=== PATIENT | male | born 1960 | race Caucasian/White ===

== ENCOUNTER 2016-10-16 21:41 | Emergency (ER) | payer BC ==
[~2016-10-16] VITALS: Ht 180.3 cm; Wt 80.7 kg
[~2016-10-16 21:41] MED LIST: AZIT250T PO; PRED50TA PO; VENTOLIN HFA18 GM INH
[2016-10-16 22:20] LABS: BILIRUBIN,URINE NEGATIVE (NEG); GLUCOSE,URINE NEGATIVE (NEG); NITRITE,URINE NEGATIVE (NEG); PROTEIN,URINE NEGATIVE (NEG-TRACE)
[2016-10-16 22:29] LABS: BACTERIA,URINE 0 /HPF (0-FEW); RBC,URINE OCC /HPF (0-2); SQUAMOUS EPITHELIAL CELL,UR OCC /LPF; WBC,URINE OCC /HPF (0-4)
[2016-10-16] MEDS ORDERED: ONDANSETRON PF 4 MG/2 ML VIAL. IV ONE (22:30)
[2016-10-16] MEDS ORDERED: CONTRAST GIVEN MC PRN (22:30)
[2016-10-16] MEDS ORDERED: IOHEXOL 300 MG/ML 75 ML VIAL IV ONE (22:30)
[2016-10-16] MEDS ORDERED: FENTANYL PF 100 MCG/2 ML VIAL. IV ONE (22:30)
[2016-10-16 22:39] LABS: BASO # 0.1 x10^3/uL (0.0-0.2); BASO % 1 % (0-3); EOS % 3 % (0-3); HEMATOCRIT 44.4 % (39.0-53.0); LYMPH # 2.9 x10^3/uL (1.0-4.8); LYMPH % 31 % (24-48); MEAN CORPUSCULAR HEMOGLOBIN 31 pg (25-35); MEAN CORPUSCULAR HGB CONC 34 g/dL (31-37); MEAN CORPUSCULAR VOLUME 91 fL (79-100); MONO % 9 % (0-9); NEUT % 57 % (31-73); PLATELET COUNT 279 x10^3/uL (140-400); RED BLOOD COUNT 4.87 x10^6/uL (4.30-5.70); RED CELL DISTRIBUTION WIDTH 13.4 % (11.5-14.5); WHITE BLOOD COUNT 9.6 x10^3/uL (4.0-11.0)
[2016-10-16 22:47] LABS: CALCIUM 8.6 mg/dL (8.5-10.1); CREATININE 1.1 mg/dL (0.7-1.3); GFR 68.8; POTASSIUM 3.6 mmol/L (3.5-5.1)
--- NOTE | 2016-10-16 23:09 | PHYS DOC ---
Past Medical History Past Medical History: Other Additional Past Medical Histor: hernia, left knee injury, acute bronchitis Past Surgical History: Other Additional Past Surgical Histo: hernia repair Alcohol Use: None Drug Use: None Adult General Chief Complaint Chief Complaint: ABDOMINAL PAIN HPI HPI This 56-year-old male had a left inguinal hernia repair back in May with mesh. He states this happened over at [facility]. He states since that time is had multiple episodes of pain but has had no follow- up operations. He states for the last 3 days he has had significant pain again to his left inguinal area. He denies any significant swelling or redness. He denies any nausea or vomiting. He states he had a normal bowel movement this morning. He states his pain is made worse with movement and straining and is rated a 6/10. He denies any significant past medical history. Review of Systems Review of Systems Constitutional: Denies fever or chills [] Eyes: Denies change in visual acuity, redness, or eye pain [] HENT: Denies nasal congestion or sore throat [] Respiratory: Denies cough or shortness of breath [] Cardiovascular: No additional information not addressed in HPI [] GI: Has abdominal pain, denies nausea, denies vomiting, denies bloody stools or diarrhea [] : Denies dysuria or hematuria [] Musculoskeletal: Denies back pain or joint pain [] Integument: Denies rash or skin lesions [] Neurologic: Denies headache, focal weakness or sensory changes [] Endocrine: Denies polyuria or polydipsia [] Current Medications Current Medications Current Medications Medications (Trade) Dose Ordered Sig/[facility] Start Time Stop Time Status Last Admin Dose Admin Fentanyl Citrate (Fentanyl 2ml Vial) 50 mcg 1X ONCE 10/16/16 22:30 10/16/16 22:31 DC 10/16/16 22:27 50 MCG Info (Do NOT chart on this entry -- for MONITORING) 1 each PRN DAILY PRN 10/16/16 22:30 10/18/16 22:29 Iohexol (Omnipaque 300 Mg/ml) 75 ml 1X ONCE 10/16/16 22:30 10/16/16 22:31 DC 10/16/16 23:11 75 ML Ondansetron HCl (Zofran) 4 mg 1X ONCE 10/16/16 22:30 10/16/16 22:31 DC 10/16/16 22:27 4 MG Allergies Allergies Allergies Coded Allergies Type Severity Reaction Last Updated Verified No Known Drug Allergies 01/19/16 No Physical Exam Physical Exam Constitutional: Well developed, well nourished, no acute distress, non-toxic appearance. [] HENT: Normocephalic, atraumatic, bilateral external ears normal, oropharynx moist, no oral exudates, nose normal. [] Eyes: PERRLA, EOMI, conjunctiva normal, no discharge. [] Neck: Normal range of motion, no tenderness, supple, no stridor. [] Cardiovascular:Heart rate regular rhythm, no murmur [] Lungs & Thorax: Bilateral breath sounds clear to auscultation [] Abdomen: Bowel sounds normal, soft, moderate inguinal tenderness to palpation with no obvious swelling or erythema, there is no evidence of incarceration, no masses, no pulsatile masses, there are no peritoneal signs. [] Skin: Warm, dry, no erythema, no rash. [] Back: No tenderness, no CVA tenderness. [] Extremities: No tenderness, no cyanosis, no clubbing, ROM intact, no edema. [] Neurologic: Alert and oriented X 3, normal motor function, normal sensory function, no focal deficits noted. [] Psychologic: Affect normal, judgement normal, mood normal. [] Current Patient Data Vital Signs Vital Signs Date Time Temp Pulse Resp B/P Pulse Ox O2 Delivery O2 Flow Rate FiO2 10/16/16 22:27 18 97 Room Air 10/16/16 21:42 97.8 88 151/86 97.8 Lab Values Laboratory Tests Test 10/16/16 21:45 10/16/16 22:25 Urine Collection Type Unknown Urine Color Yellow Urine Clarity Cloudy Urine pH 7.0 Urine Specific [place] 1.025 Urine Protein Negativemg/dL (NEG-TRACE) Urine Glucose (UA) Negativemg/dL (NEG) Urine Ketones (Stick) Negativemg/dL (NEG) Urine Blood Negative (NEG) Urine Nitrite Negative (NEG) Urine Bilirubin Negative (NEG) Urine Urobilinogen Dipstick 1.0mg/dL (0.2 mg/dL) Urine Leukocyte Esterase Negative (NEG) Urine RBC Occ/HPF (0-2) Urine WBC Occ/HPF (0-4) Urine Squamous Epithelial Cells Occ/LPF Urine Bacteria 0/HPF (0-FEW) Urine Mucus Mod/LPF White Blood Count 9.6x10^3/uL (4.0-11.0) Red Blood Count 4.87x10^6/uL (4.30-5.70) Hemoglobin 15.0g/dL (13.0-17.5) Hematocrit 44.4% (39.0-53.0) Mean Corpuscular Volume 91fL (79-100) Mean Corpuscular Hemoglobin 31pg (25-35) Mean Corpuscular Hemoglobin Concent 34g/dL (31-37) Red Cell Distribution Width 13.4% (11.5-14.5) Platelet Count 279x10^3/uL (140-400) Neutrophils (%) (Auto) 57% (31-73) Lymphocytes (%) (Auto) 31% (24-48) Monocytes (%) (Auto) 9% (0-9) Eosinophils (%) (Auto) 3% (0-3) Basophils (%) (Auto) 1% (0-3) Neutrophils # (Auto) 5.5x10^3uL (1.8-7.7) Lymphocytes # (Auto) 2.9x10^3/uL (1.0-4.8) Monocytes # (Auto) 0.8x10^3/uL (0.0-1.1) Eosinophils # (Auto) 0.3x10^3/uL (0.0-0.7) Basophils # (Auto) 0.1x10^3/uL (0.0-0.2) Sodium Level 145mmol/L (136-145) Potassium Level 3.6mmol/L (3.5-5.1) Chloride Level 108mmol/L (98-107) H Carbon Dioxide Level 29mmol/L (21-32) Anion Gap 8 (6-14) Blood Urea Nitrogen 18mg/dL (8-26) Creatinine 1.1mg/dL (0.7-1.3) Estimated GFR (Cockcroft-Gault) 68.8 Glucose Level 117mg/dL (70-99) H Calcium Level 8.6mg/dL (8.5-10.1) Laboratory Tests 10/16/16 22:25 Laboratory Tests 10/16/16 22:25 EKG EKG [] Radiology/Procedures Radiology/Procedures CT of the abdomen/pelvis demonstrated the following: The liveer is homogeous in appearance and normal in size. The spleen is unremarkable and normal in size. The pancreas is homogeneous in appearance and no focal enlargement is seen. The gallbladder appears normal and no intra or extrahepatic biliary ductal dilatation is seen. No focal aneurysmal dilatation of the abdominal aorta is seen. No enlarged abdominal or pelvic lymphadenopathy is seen. No soft tissue mass is seen. The colon appears normal. There is moderate wall thickening of multiple loops of small bowel in the left upper quadrant. No free intraperitoneal fluid or abscess or free intraperitoneal air is seen. The lung bases are clear. Both kidneys are functioning and no hydronephrosis or renal mass or perinephric fluid collection is seen. The urinary bladder wall is smooth. No adrenal masses are seen. No osteolytic process is seen. The appendix is normal. Course & Med Decision Making Course & Med Decision Making Pertinent Labs and Imaging studies reviewed. (See chart for details) 56-year-old male with significant left lower inguinal pain. I will obtain IV and lab work as well as a CT of his abdomen and pelvis with IV contrast rule out any sign of infection. At this time his lab work is unremarkable. His pain is been well controlled with IV pain medications. If his CT comes back negative for any acute signs of infection, I will be discharging him home with close follow-up with one of our surgeons as the patient does not want a follow-up at [facility]. His laboratory workup is unremarkable. A CT was and pelvis demonstrated and of a enteritis in his left upper quadrant with some moderate wall thickening. For this I'll be placing him on a course of Cipro and Flagyl and also a course of pain meds. I'll also be given him a follow-up with Dr. Christina the general surgeon for his ongoing hernia pain with strict instructions return of his pain should worsen or he develops any stomach and swelling or redness to the area. He will follow closely in the next 2-3 days for symptom resolution. Dragon Disclaimer Dragon Disclaimer This electronic medical record was generated, in whole or in part, using a voice recognition dictation system. Departure Departure Impression: Primary Impression: Abdominal pain Additional Impression: Enteritis Disposition: 01 HOME, SELF-CARE Admitting Physician: Other Condition: STABLE Referrals: NO PCP (PCP) HOLLIE CHRISTINA MD Patient Instructions: Abdominal Pain (Nonspecific), Hernia, [id number] Additional Instructions: Please take your antibiotic and pain medication as prescribed. Follow up with your primary care doctor as well as the surgeon for your hernia pain in the next 2-3 days. Return to the ER immediately if you develop any worsening of your pain or symptoms. Scripts Metronidazole (Flagyl)500 Mg Tablet1 Tab PO BID #14 TAB Prov:SANDER PERRY DO 10/16/16 Ciprofloxacin Hcl 500 Mg Tablet1 Tab PO BID #14 TAB Prov:SANDER PERRY DO 10/16/16 Hydrocodone/Apap 5-325 ([place] 5-325 Tablet)1 Each Tablet1 Tab PO PRN Q6HRS PRN PAIN #14 TAB Prov:SANDER PERRY DO 10/16/16 Problem Qualifiers SANDER PERRY DO Oct 16, 2016 23:09
--- NOTE | 2016-10-16 23:30 | RAD ---
PROCEDURE Abdominal pain. HISTORY TECHNIQUE After IV infusion of95 cc of Optiray-320, helical CT scanning of the abdomen and pelvis was performed.GI contrast was not administered. FINDINGS The liveer is homogeous in appearance and normal in size. The spleen is unremarkable and normal in size. The pancreas is homogeneous in appearance and no focal enlargement is seen. The gallbladder appears normal and no intra or extrahepatic biliary ductal dilatation is seen. No focal aneurysmal dilatation of the abdominal aorta is seen. No enlarged abdominal or pelvic lymphadenopathy is seen. No soft tissue mass is seen. The colon appears normal. There is moderate wall thickening of multiple loops of small bowel in the left upper quadrant. No free intraperitoneal fluid or abscess or free intraperitoneal air is seen. The lung bases are clear. Both kidneys are functioning and no hydronephrosis or renal mass or perinephric fluid collection is seen. The urinary bladder wall is smooth. No adrenal masses are seen. No osteolytic process is seen. The appendix is normal. IMPRESSION Moderate wall thickening of small bowel in the left upper quadrant is consist with enteritis and could be inflammatory or infectious. Electronically signed by: Fazal Cardona MD (Oct 16, 2016 23:30:03)
[2016-10-16] MEDS ORDERED: METR500T PO (23:37)
[2016-10-16] MEDS ORDERED: CIPR500T PO (23:37)
[2016-10-16] MEDS ORDERED: HYDR-971 PO (23:37)
[2016-10-16 23:58] VITALS: BP 148/89
== END 2016-10-16 23:58 | disposition home or self-care (01) ==
LOC: ER 21:41
DX: K52.9 Noninfective gastroenteritis and colitis, unspecified (principal)
CPT/HCPCS: 36415; 74177; 80048; 81001; 85027; 96374; 96375; 99285; J2405; J3010; Q9967

== ENCOUNTER 2017-08-27 08:24 | Emergency (ER) | payer BC ==
[2017-08-27] MEDS: IPRATRPIUM/ALBUTEROL 0.5/2.5MG 3 ML NEBU. NEB (09:04)
[2017-08-27] MEDS: IV NORMAL SALINE 500ML BAG 500 ML IV (09:09)
[2017-08-27 09:22] LABS: BASO # 0.1 x10^3/uL (0.0-0.2); BASO % 0 % (0-3); EOS # 0.1 x10^3/uL (0.0-0.7); EOS % 0 % (0-3); HEMATOCRIT 49.2 % (39.0-53.0); HEMOGLOBIN 16.5 g/dL (13.0-17.5); LYMPH # 1.3 x10^3/uL (1.0-4.8); LYMPH % 5 % (24-48); MEAN CORPUSCULAR HEMOGLOBIN 30 pg (25-35); MEAN CORPUSCULAR HGB CONC 34 g/dL (31-37); MEAN CORPUSCULAR VOLUME 91 fL (79-100); MONO # 1.4 x10^3/uL (0.0-1.1); MONO % 6 % (0-9); NEUT # 21.5 x10^3uL (1.8-7.7); NEUT % 88 % (31-73); PLATELET COUNT 329 x10^3/uL (140-400); RED BLOOD COUNT 5.43 x10^6/uL (4.30-5.70); RED CELL DISTRIBUTION WIDTH 13.4 % (11.5-14.5); WHITE BLOOD COUNT 24.3 x10^3/uL (4.0-11.0)
[2017-08-27 09:23] LABS: ADD MAN DIFF? YES
[2017-08-27 09:34] LABS: ANION GAP 15 (6-14); BLOOD UREA NITROGEN 15 mg/dL (8-26); CALCIUM 8.5 mg/dL (8.5-10.1); CARBON DIOXIDE 22 mmol/L (21-32); CHLORIDE 102 mmol/L (98-107); CREATININE 1.1 mg/dL (0.7-1.3); GFR 68.5; GLUCOSE 124 mg/dL (70-99); POTASSIUM 3.8 mmol/L (3.5-5.1); SODIUM 139 mmol/L (136-145)
[2017-08-27 09:39] LABS: ALBUMIN 3.6 g/dL (3.4-5.0); ALK PHOS 83 U/L (46-116); ALT (SGPT) 18 U/L (16-63); AST (SGOT) 16 U/L (15-37); DIRECT BILIRUBIN 0.2 mg/dL (0.0-0.2); LIPASE 183 U/L (73-393); TOTAL BILIRUBIN 0.8 mg/dL (0.2-1.0); TOTAL PROTEIN 7.7 g/dL (6.4-8.2)
[2017-08-27 09:41] LABS: INFLUENZA A PATIENT NEGATIVE (NEGATIVE); INFLUENZA B PATIENT NEGATIVE (NEGATIVE); OBC FLU VALID
[2017-08-27 09:43] LABS: TROPONINI < 0.017 ng/mL (0.000-0.055)
[2017-08-27 09:45] LABS: NT-PRO BNP 33 pg/mL (0-124)
[2017-08-27 10:46] LABS: % BANDS 8 % (0-9); % LYMPHS 9 % (24-48); % MONOS 5 % (0-10); % SEGS 78 % (35-66); PLT ESTIMATE ADEQUATE (ADEQUATE)
== END 2017-08-27 10:45 | disposition home or self-care (01) ==
LOC: ER 08:24
DX: J18.9 Pneumonia, unspecified organism (principal); J44.9 Chronic obstructive pulmonary disease, unspecified
CPT/HCPCS: 36415; 71046; 80048; 80076; 83690; 83880; 84484; 85007; 85025; 87804; 87804-59; 93005; 94640; 96360; 99285-25; J7040; J7620

== ENCOUNTER 2019-01-16 18:44 | Emergency (ER) | payer BC ==
[~2019-01-16] VITALS: Ht 181.6 cm; Wt 80.7 kg
[~2019-01-16 18:44] MED LIST changes: +ALBU1.25 NEB; +CIPR500T PO; +HYDR-3164 PO; +LEVO750T31 PO; +METR500T PO
[2019-01-16 19:04] VITALS: BP 137/77
[2019-01-16] MEDS ORDERED: CEPH-264 PO (19:45)
--- NOTE | 2019-01-16 19:45 | PHYS DOC ---
Past Medical History Past Medical History: Asthma Additional Past Medical Histor: hernia, left knee injury, acute bronchitis (JAIME LEMUS APRN) Past Surgical History: Other Additional Past Surgical Histo: Double hernia surgery, bilat knee surgeries (JAIME LEMUS APRN) Smoking: Less than 1pk/day Additional Information: smoker Alcohol Use: Occasionally Drug Use: None (JAIME LEMUS APRN) Adult General Chief Complaint Chief Complaint: LACERATION/AVULSION [facility] HPI Patient is a 58 year old male presents with a laceration above the right second digit. Patient was washing dishes at around 6:30 PM this evening and cut his hand on glass. Rates his pain 4 out of 10 and throbbing. Has not taken any medicine prior to arrival. (JAIME LEMUS APRN) Review of Systems Review of Systems Constitutional: Denies fever or chills [] Eyes: Denies change in visual acuity, redness, or eye pain [] HENT: Denies nasal congestion or sore throat [] Respiratory: Denies cough or shortness of breath [] Cardiovascular: No additional information not addressed in HPI [] GI: Denies abdominal pain, nausea, vomiting, bloody stools or diarrhea [] : Denies dysuria or hematuria [] Musculoskeletal: Denies back pain or joint pain [] Integument: Denies rash or skin lesions. Reports laceration to the R hand above the 2nd digit. Neurologic: Denies headache, focal weakness or sensory changes [] Endocrine: Denies polyuria or polydipsia [] Complete systems were reviewed and found to be within normal limits, except as documented in this note. (JAIME LEMUS APRN) Current Medications Current Medications Current Medications Medications (Trade) Dose Ordered Sig/[facility] Start Time Stop Time Status Last Admin Dose Admin Lidocaine HCl (Lidocaine 1% 20ml Vial) 20 ml 1X ONCE 01/16/19 20:15 01/16/19 20:16 DC 01/16/19 20:15 20 ML Neomycin/ Polymyxin/ Bacitracin (Triple Antibiotic Ointment) 1 pkt 1X ONCE 01/16/19 21:00 01/16/19 21:01 DC 01/16/19 20:53 1 PKT (JAIME CHAKRABORTY DO) Allergies Allergies Allergies Coded Allergies Type Severity Reaction Last Updated Verified strawberry Allergy Intermediate Hives 01/16/19 Yes (JAIME CHAKRABORTY DO) Physical Exam Physical Exam Constitutional: Well developed, well nourished, no acute distress, non-toxic appearance. [] HENT: Normocephalic, atraumatic, bilateral external ears normal, oropharynx moist, no oral exudates, nose normal. [] Eyes: PERRLA, EOMI, conjunctiva normal, no discharge. [] Neck: Normal range of motion, no tenderness, supple, no stridor. [] Cardiovascular:Heart rate regular rhythm, no murmur [] Lungs & Thorax: Bilateral breath sounds clear to auscultation [] Abdomen: Bowel sounds normal, soft, no tenderness, no masses, no pulsatile masses. [] Skin: Warm, dry, no erythema, no rash. Laceration to the R hand above the 2nd digit. Clean cut with a flap. Back: No tenderness, no CVA tenderness. [] Extremities: No tenderness, no cyanosis, no clubbing, ROM intact, no edema. [] Neurologic: Alert and oriented X 3, normal motor function, normal sensory function, no focal deficits noted. [] Psychologic: Affect normal, judgement normal, mood normal. [] (JAIME LEMUS APRN) Current Patient Data Vital Signs Vital Signs Date Time Temp Pulse Resp B/P (MAP) Pulse Ox O2 Delivery O2 Flow Rate FiO2 01/16/19 19:04 98.7 16 137/77 (97) 97 Room Air 98.7 (JAIME CHAKRABORTY DO) EKG EKG [] (JAIME LEMUS APRN) Radiology/Procedures Radiology/Procedures Indication: Laceration Procedure: The patient was placed in the appropriate position and anesthesia around the 4 ml of lidocaine. The area was then debrided with normal saline. The laceration was closed with 6 4-0 ethilon sutures. The wound area was then dressed with neosporin and dressing. Total repaired wound length: 2 CM. The patient tolerated the procedure. Complications:None (JAIME LEMUS APRN) Course & Med Decision Making Course & Med Decision Making Pertinent Labs and Imaging studies reviewed. (See chart for details) Will numb with lidocaine and then suture. Patient is agreeable. (JAIME LEMUS APRN) Dragon Disclaimer Dragon Disclaimer This electronic medical record was generated, in whole or in part, using a voice recognition dictation system. (JAIME LEMUS APRN) Departure Departure Impression: Primary Impression: Laceration Disposition: HOME, SELF-CARE Condition: STABLE Referrals: JOSUE GREGORIO MD (PCP) Patient Instructions: Laceration Care, Adult Additional Instructions: Follow up with a doctor in 7 days to have sutures removed. Take all of antibiotic. Return to ER if notice signs of infection. Scripts Cephalexin (KEFLEX) 500 Mg Capsule 1 CAP PO BID for 7 Days, #14 CAP Prov: JAIME LEMUS APRN 01/16/19 Attending Signature Attending Signature I have reviewed the PA/BLOCK HACKER's note and plan of care. I was available for consultation as needed during the patient's visit in the emergency department. I agree with the clinical impression, plan, and disposition. (JAIME CHAKRABORTY DO) JAIME LEMUS APRN January 16, 2019 19:45 JAIME CHAKRABORTY DO January 19, 2019 05:11
[2019-01-16] MEDS ORDERED: LIDOCAINE 1% Multi-Dose 20 ML VIAL. INJ ONE (20:15)
[2019-01-16] MEDS ORDERED: NEOMY/BACITR/POLYMYXIN OINT PACKET. TP ONE (21:00)
== END 2019-01-16 20:55 | disposition home or self-care (01) ==
LOC: ER 18:44
DX: S61.210A Laceration without foreign body of right index finger without damage to nail, initial encounter (principal); J45.909 Unspecified asthma, uncomplicated; F17.200 Nicotine dependence, unspecified, uncomplicated; Z91.018 Allergy to other foods; W25.XXXA Contact with sharp glass, initial encounter; Y93.G1 Activity, food preparation and clean up; Y92.89 Other specified places as the place of occurrence of the external cause; Y99.8 Other external cause status
CPT/HCPCS: 12001; 99283

== ENCOUNTER → 2020-08-31 | Outpatient (CLI) | payer OTHER ==
[~2020-08-31] MED LIST changes: +CEPH-264 PO; -CIPR500T PO; +CIPR500T2 PO
--- NOTE | 2020-08-31 15:34 | KCIC ---
EXAM: CT coronary artery calcium screening; radiologist over read. HISTORY: Hyperlipidemia. TECHNIQUE: Computed tomographic images of the chest were obtained without contrast. Multiplanar refor matting was performed. *One or more of the following individualized dose reduction techniques were utilized for this examina tion: 1. Automated exposure control. 2. Adjustment of the mA and/or kV according to patient size. 3. Use of iterative reconstruction technique. COMPARISON: None. FINDINGS: The heart is normal in size. There is calcified atherosclerotic plaque involving the etienne ry arteries. There is calcification of the aortic valve. There is no lymphadenopathy. There is a 4 mm nodule with surrounding groundglass within the lateral right upper lobe (series 5, image 3). There i s no acute finding involving the osseous structures or upper abdomen. Coronary artery calcium score: Left main artery - 0 Left anterior descending -28.9 Left circumflex -17.4 Right coronary artery -47.0 TOTAL = 93.3 IMPRESSION: 1. Coronary artery calcium score of 93.3. 2. Calcific lesion of the aortic valve. 3. 4 mm nodule with surrounding groundglass within the lateral right upper lobe. Follow up can be per formed in one year if there are risk factors for pulmonary neoplasm. Electronically signed by: Talia Quiroz MD (08/31/2020 3:31 PM) [id number]
== END ==
LOC: KCIC CT 14:46
PROVIDERS: ATTEND Family Medicine
DX: Z13.6 Encounter for screening for cardiovascular disorders (principal); I35.8 Other nonrheumatic aortic valve disorders
CPT/HCPCS: 75571